=== PATIENT | female | born 1995 ===

== ENCOUNTER 2018-10-05 19:56 | Inpatient (IN) | payer OTHER ==
[~2018-10-05] VITALS: Ht 165.1 cm; Wt 100.2 kg
[~2018-10-05 19:56] MED LIST: Flagyl500 MG PO; PRENATAL GUMMI1 EACH PO
[2018-10-05 20:38] LABS: BASOPHILS ABSOLUTE AUTO 0.01 K/mm3 (0.00-0.23); BASOPHILS PERCENT AUTO 0 % (0-2); EOSINOPHILS ABSOLUTE AUTO 0.06 K/mm3 (0.00-0.68); EOSINOPHILS PERCENT AUTO 1 % (0-6); Hematocrit 29.9 % (33.0-51.0); Hemoglobin 9.8 g/dL (11.5-16.0); IMMATURE GRAN ABSOLUTE AUTO 0.04 K/mm3 (0.00-0.10); IMMATURE GRAN PERCENT AUTO 0 % (0-1); LYMPHOCYTES ABSOLUTE AUTO 1.02 K/mm3 (0.84-5.20); LYMPHOCYTES PERCENT AUTO 11 % (21-46); MONOCYTES ABSOLUTE AUTO 0.49 K/mm3 (0.16-1.47); MONOCYTES PERCENT AUTO 5 % (4-13); Mean Corpuscular HGB 26.6 pg (26.0-34.0); Mean Corpuscular HGB Conc 32.8 g/dL (31.5-36.5); Mean Corpuscular Volume 81 fL (80-100); Mean Platelet Volume 10.9 fL (9.1-12.4); NEUTROPHILS PERCENT AUTO 83 % (41-73); Platelet Count 304 K/mm3 (150-400); RDW Coefficient Variation 12.5 % (11.7-14.2); RDW Standard Deviation 36.9 fL (35.1-46.3); Red Blood Cell Count 3.69 M/mm3 (3.80-5.20); White Blood Cell Count 9.42 K/mm3 (4.00-11.30)
[2018-10-05 22:10] LABS: PCO2 Cord - Arterial 53.9 mmHg (40-50); PO2 Cord - Arterial 13.3 mmHg (16-20); pH Cord - Arterial 7.32 (7.28-7.35)
[2018-10-05 22:11] LABS: PCO2 Cord - Venous 43.1 mmHg (40-50); PO2 Cord - Venous 21.7 mmHg (28-32); pH Umbilical Cord - Venous 7.37 (7.26-7.35)
--- NOTE | 2018-10-06 00:55 | NUR ---
CAPSULE PROBLEMS PT IN PACU 10/05/18 FROM [id number]. PT WAS SHAKING, HAD TROUBLE GETTING INITIAL BP. DR. ROMO IN PACU AND WAITED FOR FIRST BP. CAPSULE DID NOT RECORD VITAL SIGNS TO SEND TO [employer]. VS WERE OBTAINED FROM PACU MONITOR AND ENTERED INDIVIDUALLY.
[2018-10-06 05:45] LABS: Hematocrit 23.9 % (33.0-51.0); Hemoglobin 7.7 g/dL (11.5-16.0); Mean Corpuscular HGB 26.3 pg (26.0-34.0); Mean Corpuscular HGB Conc 32.2 g/dL (31.5-36.5); Mean Corpuscular Volume 82 fL (80-100); Mean Platelet Volume 10.6 fL (9.1-12.4); Platelet Count 223 K/mm3 (150-400); RDW Coefficient Variation 12.5 % (11.7-14.2); RDW Standard Deviation 37.6 fL (35.1-46.3); Red Blood Cell Count 2.93 M/mm3 (3.80-5.20); White Blood Cell Count 7.36 K/mm3 (4.00-11.30)
--- NOTE | 2018-10-06 14:50 | NUR ---
pt has maguire catheter in place, patent and draining clear maximiliano urine. she is c/o burning and feeling like she is voiding around the catheter. upon assessment, pt is dry around catheter and it is still draining. she is currently on abx and vitals are stabilizing, currently receiving one unit prbc for hgb less than 8. she is about 15 hours post op, but she feels that she is not quite ready to have us take maguire out and ambulate to the bathroom. i consulted with luz elena pisano rn, and she agrees with my assessment and plan. we will reassess option to take out catheter after blood transfusion is complete.
--- NOTE | 2018-10-06 17:00 | NUR ---
CONSULT. BABY IS LESS THAN 12 HOURS OLD AND SLEEPY. HE HAS FED A COUPLE OF TIMES FAIRLY WELL, MOM HAVING PROBLEMS WITH LATCHING ON RIGHT SIDE WITH LARGER NIPPLE AND DEEP CREVASSE IN THE CENTER OF THE NIPPLE. ABLE TO SELF EBM WELL. EXPERIENCED WITH BF AND HANDLES BABY WELL. LOW H&H AND IS RECEIVING BLOOD TRANSFUSION. HISTORY OF GOOD PRODUCTION. INSTRUCT IN CHANGES TO EXPECT DURING THE FIRST WEEK WITH FEEDINGS AND WITH BABY AND REFERRED TO BF BROCHURE. ATTEMPTED LATCH IN FOOTBALL POSITION, HE WAS TOO SLEEPY AND NO EFFORT GIVEN. MOM IS LOVING. QUESTIONS ANSWERED.
--- NOTE | 2018-10-06 23:06 | NUR ---
PT DOING WELL OTHER THAN REPORT OF 7/10 PAIN. AROUND 1930 PT WAS GIVEN 2 TABLETS OF PERCOCET AND 1 TAB OF ROXYCODONE ONE HOUR LATER. AT 2299 PT WAS GIVEN TORODOL ORDERED. PT STILL REPORTS 7/10 PAIN. WILL CONTINUE TO MONITOR REPOSITION/ USE HEAT PACK. PT UP TO AMBULATE TO THE BATHROOM. PT WAS OFFERED THE OPTION OF SHOWERING WHEN SHE GOT UP BUT REPORTED SHE WOULD LIKE TO "WAIT A FEW MORE HOURS UNTIL SHE WAS READY" [facility]. FIRST PP VOID WITHOUT DIFFICULTY. PT ENCOURAGED TO REST. VITALS WNL.
--- NOTE | 2018-10-07 02:00 | NUR ---
MOTHER UPDATED ON HOSPITAL POLICY THAT INFANT NEEDS TO BE IN THE CRIB WHILE SLEEPING.
[2018-10-07 05:03] LABS: Hematocrit 26.1 % (33.0-51.0); Hemoglobin 8.5 g/dL (11.5-16.0); Mean Corpuscular HGB 26.6 pg (26.0-34.0); Mean Corpuscular HGB Conc 32.6 g/dL (31.5-36.5); Mean Corpuscular Volume 82 fL (80-100); Mean Platelet Volume 10.3 fL (9.1-12.4); Platelet Count 231 K/mm3 (150-400); RDW Coefficient Variation 12.7 % (11.7-14.2); RDW Standard Deviation 38.1 fL (35.1-46.3); Red Blood Cell Count 3.19 M/mm3 (3.80-5.20); White Blood Cell Count 9.01 K/mm3 (4.00-11.30)
--- NOTE | 2018-10-07 08:14 | NUR ---
EDITED, RN PUSHED Y INSTEAD OF N. PT DOES NOT HAVE COPING ISSUES, IS NOT IN AN UNSAFE ENVIORNMENT AND IS NOT A THREAT TO HERSELF.
--- NOTE | 2018-10-07 09:38 | NUR ---
PT REPORTS FEELING LIGHT HEADED, IS NOT SEEING SPOTS, NO RINGING IN THE EARS. JUICE GIVEN. BOX 100%, PULSE WNL FOR PT. PT STATES SHE HASN'T SLEPT AND DIDN'T EAT BREAKFAST. SANDWHICH GIVEN.
--- NOTE | 2018-10-07 10:19 | NUR ---
PT FEELING LESS ANXIOUS. STATES SHE WILL TRY AND SLEEP WHEN HER BOYFRIEND COMES.
--- NOTE | 2018-10-07 11:25 | NUR ---
PT HYSTERICAL, CRYING WITH BOYFRIEND AT SIDE. STATES SHE HURTS AND IS TIRED. WOULD LIKE SHERLEY.
--- NOTE | 2018-10-07 11:35 | NUR ---
RONALD TINSLEY CNM IN HOUSE AND UPDATED ON PT STATUS. ALVINA TO ROOM, PT CALM AND NOT CRYING. STATES SHE IS NOT USUALLY ANXIOUS AND IS UNSURE WHY. ENCOURAGED REST AND SLEEP. INCISION CHECKED BY ARLYN TINSLEY.
--- NOTE | 2018-10-07 12:18 | NUR ---
PT IN BED HOLDING INFAN TO BREASTFEED. IS NOT TEARFUL. APPEARS HAPPY AND CALM, IS TRYING TO EAT HER SOUP.
--- NOTE | 2018-10-07 13:30 | NUR ---
PT SMILING AND TALKING WITH FRIEND, EATING FOOD THAT WAS BROUGHT TO HER. DECLINES PERCOCET, STATES SHE FEELS GOOD. WILL CALL WHEN READY.
--- NOTE | 2018-10-07 21:00 | NUR ---
PT DENIES FEELING ANXIOUS AT THIS TIME. REPORTS SHE FEELS BETTER THAN THE PREVIOUS DAY AFTER RESTING AND EATING. REPORTS PAIN INTERMITTENTLY THAT VARIES FROM 5-7/10. KYLIE AND PERCOCET GIVEN PRN ORDERED. ENCOURAGED TO REST. WILL MONITOR
--- NOTE | 2018-10-08 07:45 | NUR ---
PATEINT COMPLAINS OF PAIN 7/10WHILE FALLING ASLEEP DURING CONVERSATION. PT REFUSES FOR NURSE TO MEASURE VITAL SIGNS ON BABY AND ASSESSMENT AT THIS TIME
[2018-10-08] MEDS ORDERED: Percocet 5-3251 EACH PO (13:25)
[2018-10-08] MEDS ORDERED: IBUP800 PO (13:26)
--- NOTE | 2018-10-08 17:40 | NUR ---
PT DISCHARGED HOME. PT LEFT ROOM VIA WHEELCHAIR AND COPYWRITER ESCORT JUST PRIOR TO THIS NOTE. DISCHARGE TEACHING COMPLETED, PT VERBALIZED UNDERSTANDING. NURSE EDUCATED PT ABOUT THE TOPICS INCLUDED IN INFORMATIONAL BOOKLET AND HOW TO DOWNLOAD FRACISCO. ALL QUESTIONS ANSWERED.
== END 2018-10-08 17:36 | disposition home or self-care (01) | DRG 788 ==
LOC: OBS 19:56 → BC 20:15
PROVIDERS: Nurse Practitioner Obstetrics & Gynecology; ADMIT Obstetrics & Gynecology
PROC: 10D00Z1 Extraction of Products of Conception, Low, Open Approach (ICD-10-PCS; principal; 2018-10-05 20:30)
PROC: 30233N1 Transfusion of Nonautologous Red Blood Cells into Peripheral Vein, Percutaneous Approach (ICD-10-PCS; 2018-10-06)
DX: O60.14X0 Preterm labor third trimester with preterm delivery third trimester, not applicable or unspecified (principal); O34.211 Maternal care for low transverse scar from previous cesarean delivery; Z3A.36 36 weeks gestation of pregnancy; Z37.0 Single live birth; O90.81 Anemia of the puerperium; D64.9 Anemia, unspecified
CPT/HCPCS: 36415; 36430; 59025; 81001; 82803; 85025; 85027; 86850; 86900; 86901; 86923; 96361; 96372; 96374; 99213; J0690; J1170; J1885; J2270; J2370; J2405; J2550; J2590; J2765; J3010; J7030; J7120; J7131; P9016

== ENCOUNTER 2018-11-01 16:00 | Inpatient (IN) | payer OTHER ==
[~2018-11-01] VITALS: Ht 165.1 cm; Wt 93.8 kg
[~2018-11-01 16:00] MED LIST changes: +IBUP800 PO; +Percocet 5-3251 EACH PO
[2018-11-01 17:28] LABS: BASOPHILS ABSOLUTE AUTO 0.03 K/mm3 (0.00-0.23); BASOPHILS PERCENT AUTO 0 % (0-2); EOSINOPHILS ABSOLUTE AUTO 0.04 K/mm3 (0.00-0.68); EOSINOPHILS PERCENT AUTO 0 % (0-6); Hematocrit 35.3 % (33.0-51.0); IMMATURE GRAN PERCENT AUTO 1 % (0-1); LYMPHOCYTES ABSOLUTE AUTO 1.26 K/mm3 (0.84-5.20); LYMPHOCYTES PERCENT AUTO 8 % (21-46); MONOCYTES PERCENT AUTO 5 % (4-13); Mean Corpuscular HGB 25.3 pg (26.0-34.0); Mean Corpuscular HGB Conc 31.2 g/dL (31.5-36.5); Mean Corpuscular Volume 81 fL (80-100); NEUTROPHILS ABSOLUTE AUTO 14.23 K/mm3 (1.96-9.15); NEUTROPHILS PERCENT AUTO 86 % (41-73); Platelet Count 269 K/mm3 (150-400); RDW Coefficient Variation 13.6 % (11.7-14.2); RDW Standard Deviation 40.4 fL (35.1-46.3); Red Blood Cell Count 4.35 M/mm3 (3.80-5.20); White Blood Cell Count 16.56 K/mm3 (4.00-11.30)
[2018-11-01 17:47] LABS: Alanine Aminotransfer (ALT/SGP 19 U/L (12-78); Albumin, Blood 3.4 g/dL (3.4-5.0); Albumin/Globulin Ratio 0.7 (0.8-1.8); Alk Phos 82 U/L (50-136); Anion Gap 9 mmol/L (6-16); Aspartate Aminotrans (AST/SGOT 14 U/L (12-37); Bilirubin, Total 0.5 mg/dL (0.1-1.0); Blood Urea Nitrogen 14 mg/dL (8-24); Bun/Creatinine Ratio 22.3 (12.0-20.0); CO2, Blood 24 mmol/L (21-32); Calcium, Blood 8.6 mg/dL (8.5-10.1); Chloride, Blood 102 mmol/L (98-108); Creatinine, Blood 0.63 mg/dL (0.40-1.00); Globulin, Blood 4.6 g/dL (2.2-4.0); Glomerular Filtration Rate >60 (60-); Glucose, Blood 109 mg/dL (70-99); Potassium, Blood 3.7 mmol/L (3.5-5.5); Sodium, Blood 135 mmol/L (136-145)
[2018-11-01 17:54] LABS: Influenza A Negative (NEGATIVE); Influenza B Negative (NEGATIVE)
[2018-11-01 18:38] LABS: Source, Urine Clean Catch
[2018-11-01 18:45] LABS: Appearance, Urine Hazy (Clear); Bilirubin, Urine Neg (Neg); Blood, Urine 3+ (Neg); Color, Urine Yellow (P-Yellow); Glucose Qualitative, Urine Neg (Neg); Ketones, Urine Neg (Neg); Leukocyte Esterase, Urine 1+ (Neg); Nitrite, Urine Neg (Neg); Protein, Urine 2+ (Neg); Specific Gravity, Urine 1.015 (1.003-1.022); Urobilinogen, Urine 1+ (Normal)
[2018-11-01 18:56] LABS: Bacteria Few /hpf; Hyaline Casts 0-2 /lpf (0-2); Mucus Mod ({null, 0-Heavy}); Red Blood Cells, Urine 0-2 /hpf (0-2); Squamous Epithelial Cells Few /hpf (Few)
--- NOTE | 2018-11-02 03:55 | NUR ---
SHIFT SUMMARY: PT IS ALERT AND ORIENTED. PT IS CALM AND COOPERATIVE WITH CARE. PT CALLS APPROPRIATELY. PT IS INDEPENDENT IN THE ROOM. BABY AND BOYFRIEND IN THE ROOM OVERNIGHT. PT REQUESTED SNACKS, GIVEN. PT DENIES PAIN, NAUSEA, VOMITING, AND SOB. PT SLEPT MUCH OF THE NIGHT WHEN NOT DISTURBED. NO ACUTE CHANGES OR COMPLICATIONS THIS SHIFT. BED IN LOW POSITION, CALL LIGHT WITHIN REACH. WILL REPORT TO DAY NURSE.
[2018-11-02 05:42] LABS: Hematocrit 30.3 % (33.0-51.0); Hemoglobin 9.4 g/dL (11.5-16.0); Mean Corpuscular HGB 24.9 pg (26.0-34.0); Mean Corpuscular Volume 80 fL (80-100); Mean Platelet Volume 10.6 fL (9.1-12.4); Platelet Count 212 K/mm3 (150-400); RDW Coefficient Variation 13.9 % (11.7-14.2); RDW Standard Deviation 40.7 fL (35.1-46.3); Red Blood Cell Count 3.77 M/mm3 (3.80-5.20); White Blood Cell Count 10.03 K/mm3 (4.00-11.30)
[2018-11-02 06:06] LABS: Alanine Aminotransfer (ALT/SGP 15 U/L (12-78); Albumin, Blood 2.6 g/dL (3.4-5.0); Albumin/Globulin Ratio 0.7 (0.8-1.8); Alk Phos 66 U/L (50-136); Anion Gap 9 mmol/L (6-16); Aspartate Aminotrans (AST/SGOT 17 U/L (12-37); Bilirubin, Total 0.3 mg/dL (0.1-1.0); Blood Urea Nitrogen 17 mg/dL (8-24); CO2, Blood 23 mmol/L (21-32); Chloride, Blood 108 mmol/L (98-108); Creatinine, Blood 0.61 mg/dL (0.40-1.00); Globulin, Blood 3.8 g/dL (2.2-4.0); Glomerular Filtration Rate >60 (60-); Glucose, Blood 137 mg/dL (70-99); Potassium, Blood 3.4 mmol/L (3.5-5.5); Sodium, Blood 140 mmol/L (136-145); Total Protein, Blood 6.4 g/dL (6.4-8.2)
--- NOTE | 2018-11-02 13:30 | NUR ---
DISCUSS PAIN MEDS WITH . OK TO ORDER IBU 600MG Q 8 PRN. IF PATIENT USES PERCOCET SHOULD PUMP BREAST FOR ABOUT 6 HOURS AND TOSS MILK. IF USES FENTANYL PROBABLY SHORTER TIME BEFORE BABY CAN USE BREAST MILK. PATIENT HAS PAIN " BASE OF HEAD BY NECK" , NOT WORSE PAIN, CAN MOVE HEAD. NO FURTHER ORDERS.
--- NOTE | 2018-11-02 13:30 | NUR ---
DISCUSS WITH PATIENT ABOUT NOT USING BREAST MILK FOR BABY IF TAKING NARCOTICS. PATIENT STS SHE HAS SOME MILK AT HOME SHE CAN USE. REITERATE TO PATIENT TO TOSS MILK AWAY FOR ABOUT 6 HOURS AFTER RECEIVING PERCOCET AND ABOUT 1/2 THAT TIME AFTER RECEIVING FENTANYL. PATIENT VERBALIZES UNDERSTANDING.
--- NOTE | 2018-11-02 18:21 | NUR ---
ALERT AND ORIENTED. HAS BEEN MEDICATED NUMEROUS TIMES FOR BACK PAIN AND NECK PAIN. HAS BEEN COUNSELLED ABOUT NARCOTICS AND FEEDING BABY BREAST MILK. IV PATENT. UNLABORED RESPIRATIONS. ABLE TO MAKE NEEDS KNOWN. BED IN LOW POSITION. INDEPENDENT IN ROOM. WILL CONTINUE TO MONITOR.
--- NOTE | 2018-11-03 01:13 | NUR ---
ASSUMED CARE OF PATIENT AT APPROXIMATELY 1900 FROM [facility] Will RN. PATIENT ALERT AND ORIENTED; INDEPENDENT IN ROOM. PATIENT REPORTS PAIN IN NECK AND BACK; REPORTS PAIN HAS BEEN OCCURING SINCE OF 3 WEEK OLD. PATIENT DENIES NUMBNESS, TINGLING, DIZZINESS OR NAUSEA. ICE AND WARM BLANKETS OFFERED FOR PAIN; PATIENT REPORTS ICE HELPS. IV PAIN MEDICATION NOT USED DUE TO PATIENT . PATIENT HESTITATE TO TAKE MEDS WHILE ; CONFIRMED WITH PHARMACIST ON TAKING MEDS WITH . PATIENT SIGNIFICANT OTHER AND 4 YEAR OLD SON SLEEPING IN ROOM. NSR ON TELE; OXYGEN SADTURATION ABOVE 90% ON ROOM AIR; HEALTHY APPETITE. REPORTS DIFFICULTY WITH BOWEL MOVEMENT DURING DAY; PRUNE JUICE AND APPLESAUCE GIVEN; WILL PASS ONTO DAYSHIFT FOR STOOL SOFTENER; REFUSE LAXATIVES. PATIENT CURRENTLY RESTING IN BED WITH INFANT; CALL LIGHT IN REACH; BED IN LOWEST POSISTION; WILL CONTINUE TO MONITOR AND ASSESS UNTIL END OF SHIFT.
--- NOTE | 2018-11-03 06:18 | NUR ---
NO ACUTE CHANGES TO REPORT. PATIENT SLEPT ABOUT SIX HOURS. REPORTS SHE WOKE UP AND FELT LIKE SHE WET THE BED; AFEBRILE; GOWN CHANGED. MEDICATED PER EMAR FOR PAIN. WILL CONTINUE TO MONITOR AND ASSESS UNTIL END OF SHIFT.
--- NOTE | 2018-11-03 11:46 | NUR ---
Student nurse was given permission to access charts and give patient care.
[2018-11-03] MEDS ORDERED: ACIDOPHILUS1 EAC1 PO (17:44)
[2018-11-03] MEDS ORDERED: CEFP200 PO (17:46)
--- NOTE | 2018-11-03 18:15 | NUR ---
REVIEW D'C W/PATIENT. AWARE TO ESCALATOR ATTENDANT RX X 2 AT [facility] [employer]. REVIEW WHAT MEDS SHE IS TAKING. AWARE TO MAKE FOLLOW UP APPT W/A PCP. STS SHE THINKS SHE HAS ONE AND SHE HAS THE PERSONS CARD. ADVISED IF SHE IS HAVING ANY PROBLEMS SHE CAN RETURN TO [facility]. PATIENT AWARE IF SHE TAKES NARCOTICS THEY CAN PASS THRU HER BREAST MILK. ANSWER ALL QUESTIONS. IN W/C W/DEBT RECOVERY OFFICER AND FAMILY MEMBERS TO CAR.
== END 2018-11-03 18:32 | disposition home or self-care (01) | DRG 776 ==
LOC: ER 16:00 → MEDS 20:27 → ER 21:26 → MEDS 21:32
PROVIDERS: Physician Assistant; ADMIT Internal Medicine
DX: O99.89 Other specified diseases and conditions complicating pregnancy, childbirth and the puerperium (principal); M54.9 Dorsalgia, unspecified; Q05.7 Lumbar spina bifida without hydrocephalus; O90.81 Anemia of the puerperium; O86.4 Pyrexia of unknown origin following delivery; B96.20 Unspecified Escherichia coli [E. coli] as the cause of diseases classified elsewhere; O86.20 Urinary tract infection following delivery, unspecified
CPT/HCPCS: 36415; 72148; 74177; 76856; 80053; 81001; 83605; 84132; 85025; 85027; 87040; 87077; 87086; 87186; 87804; 90686; 96361; 96365; 96375; 99285-25; J0696; J1170; J1885; J2405; J3010; J7030; J7120; P9612; Q9967

== ENCOUNTER 2019-06-26 18:40 | Emergency (ER) | payer OTHER ==
[~2019-06-26] VITALS: Ht 162.6 cm; Wt 86.2 kg
[~2019-06-26 18:40] MED LIST changes: +ACIDOPHILUS1 EAC1 PO; +CEFP200 PO; +CEPH500 PO; +ONDA4ODT MM
[2019-06-26 19:14] LABS: BASOPHILS ABSOLUTE AUTO 0.02 K/mm3 (0.00-0.23); BASOPHILS PERCENT AUTO 0 % (0-2); EOSINOPHILS ABSOLUTE AUTO 0.02 K/mm3 (0.00-0.68); EOSINOPHILS PERCENT AUTO 0 % (0-6); IMMATURE GRAN ABSOLUTE AUTO 0.02 K/mm3 (0.00-0.10); IMMATURE GRAN PERCENT AUTO 0 % (0-1); LYMPHOCYTES ABSOLUTE AUTO 1.36 K/mm3 (0.84-5.20); LYMPHOCYTES PERCENT AUTO 18 % (21-46); MONOCYTES ABSOLUTE AUTO 0.58 K/mm3 (0.16-1.47); MONOCYTES PERCENT AUTO 8 % (4-13); Mean Corpuscular HGB 26.7 pg (26.0-34.0); Mean Corpuscular HGB Conc 32.5 g/dL (31.5-36.5); Mean Corpuscular Volume 82 fL (80-100); Mean Platelet Volume 9.6 fL (9.1-12.4); NEUTROPHILS ABSOLUTE AUTO 5.64 K/mm3 (1.96-9.15); NEUTROPHILS PERCENT AUTO 74 % (41-73); Platelet Count 302 K/mm3 (150-400); RDW Coefficient Variation 14.5 % (11.7-14.2); RDW Standard Deviation 43.4 fL (35.1-46.3); Red Blood Cell Count 4.87 M/mm3 (3.80-5.20); White Blood Cell Count 7.64 K/mm3 (4.00-11.30)
[2019-06-26 19:33] LABS: Alanine Aminotransfer (ALT/SGP 15 U/L (12-78); Albumin, Blood 3.8 g/dL (3.4-5.0); Albumin/Globulin Ratio 0.8 (0.8-1.8); Alk Phos 83 U/L (50-136); Anion Gap 6 mmol/L (6-16); Aspartate Aminotrans (AST/SGOT 13 U/L (12-37); Bilirubin, Total 0.4 mg/dL (0.1-1.0); Blood Urea Nitrogen 10 mg/dL (8-24); Bun/Creatinine Ratio 22.5 (12.0-20.0); CO2, Blood 26 mmol/L (21-32); Calcium, Blood 9.2 mg/dL (8.5-10.1); Chloride, Blood 107 mmol/L (98-108); Creatinine, Blood 0.45 mg/dL (0.40-1.00); Globulin, Blood 4.5 g/dL (2.2-4.0); Glomerular Filtration Rate >60 (60-); Glucose, Blood 102 mg/dL (70-99); Potassium, Blood 3.3 mmol/L (3.5-5.5); Sodium, Blood 139 mmol/L (136-145); Total Protein, Blood 8.3 g/dL (6.4-8.2)
[2019-06-26 20:18] LABS: Source, Urine Clean Catch
[2019-06-26 20:20] LABS: Blood, Urine 5+ (Neg); Glucose Qualitative, Urine Neg (Neg); Ketones, Urine 3+ (Neg); Leukocyte Esterase, Urine 2+ (Neg); Nitrite, Urine Neg (Neg); Protein, Urine 2+ (Neg); Specific Gravity, Urine 1.015 (1.003-1.022); Urobilinogen, Urine 3+ (Normal)
[2019-06-26 20:26] LABS: Appearance, Urine Hazy (Clear); Bilirubin, Urine 1+ (Neg); Color, Urine Yellow (P-Yellow)
[2019-06-26 20:27] LABS: Bacteria Many /hpf; Mucus Mod (0-Heavy); Squamous Epithelial Cells Mod /hpf (Few)
[2019-06-26 21:01] LABS: CPK Creatine Kinase 36 U/L (26-193)
[2019-06-26 21:04] LABS: Thyroid Stimulating Hormone 0.789 uIU/mL (0.360-4.800)
[2019-06-26] MEDS ORDERED: ONDA4ODT MM (23:33)
[2019-06-29 13:07] LABS: QUANTIFERON MITOGEN VALUE >10.00 IU/mL (.); QUANTIFERON NIL VALUE 0.24 IU/mL (.); QUANTIFERON TB1 AG VALUE 0.23 IU/mL (.); QUANTIFERON TB2 AG VALUE 0.22 IU/mL (.); QUANTIFERON-TB GOLD PLUS Negative (Negative)
[2019-06-29 14:07] LABS: ANA DIRECT Negative (Negative); ANTIMYELOPEROXIDASE (MPO) ABS <9.0 U/mL (0.0-9.0); ANTIPROTEINASE 3 (PR-3) ABS <3.5 U/mL (0.0-3.5); ATYPICAL PANCA <1:20 titer (Neg:<1:20); CYTOPLASMIC (C-ANCA) <1:20 titer (Neg:<1:20); PERINUCLEAR (P-ANCA) <1:20 titer (Neg:<1:20)
== END 2019-06-26 23:46 | disposition home or self-care (01) ==
LOC: ER 18:40
PROVIDERS: Emergency Medicine
DX: R51 Headache (principal); R11.2 Nausea with vomiting, unspecified; R50.9 Fever, unspecified
CPT/HCPCS: 36415; 71046; 74177; 80053; 81001; 81025; 82550; 83520; 84443; 85025; 86141; 86256; 86430; 86480; 87081; 87086; 87430; 96361; 96374-59; 96375; 99284-25; J1200; J1885; J2405; J2765; J7030; Q9967

== ENCOUNTER 2021-05-04 19:11 | Emergency (ER) | payer OTHER ==
[~2021-05-04] VITALS: Ht 165.1 cm; Wt 94.8 kg
[2021-05-04 22:28] LABS: SARS-Cov-2 (COVID-19) PCR, MMC NEGATIVE (NEGATIVE)
[2021-05-04 23:04] LABS: BASOPHILS ABSOLUTE AUTO 0.01 K/mm3 (0.00-0.23); BASOPHILS PERCENT AUTO 0 % (0-2); EOSINOPHILS PERCENT AUTO 0 % (0-6); Hematocrit 32.9 % (33.0-51.0); Hemoglobin 10.6 g/dL (11.5-16.0); IMMATURE GRAN PERCENT AUTO 0 % (0-1); LYMPHOCYTES ABSOLUTE AUTO 1.05 K/mm3 (0.84-5.20); LYMPHOCYTES PERCENT AUTO 22 % (21-46); MONOCYTES ABSOLUTE AUTO 0.28 K/mm3 (0.16-1.47); MONOCYTES PERCENT AUTO 6 % (4-13); Mean Corpuscular HGB 24.9 pg (26.0-34.0); Mean Corpuscular HGB Conc 32.2 g/dL (31.5-36.5); Mean Corpuscular Volume 77 fL (80-100); Mean Platelet Volume 10.3 fL (9.1-12.4); NEUTROPHILS ABSOLUTE AUTO 3.46 K/mm3 (1.96-9.15); NEUTROPHILS PERCENT AUTO 72 % (41-73); Platelet Count 235 K/mm3 (150-400); RDW Coefficient Variation 14.4 % (11.7-14.2); RDW Standard Deviation 40.3 fL (35.1-46.3); Red Blood Cell Count 4.25 M/mm3 (3.80-5.20)
[2021-05-04 23:24] LABS: Alanine Aminotransfer (ALT/SGP 18 U/L (12-78); Albumin, Blood 3.1 g/dL (3.4-5.0); Albumin/Globulin Ratio 0.9 (0.8-1.8); Alk Phos 59 U/L (50-136); Anion Gap 7 mmol/L (6-16); Aspartate Aminotrans (AST/SGOT 11 U/L (12-37); Bilirubin, Total 0.2 mg/dL (0.1-1.0); Blood Urea Nitrogen 11 mg/dL (8-24); Bun/Creatinine Ratio 19.3 (12.0-20.0); CO2, Blood 23 mmol/L (21-32); Calcium, Blood 7.6 mg/dL (8.5-10.1); Chloride, Blood 109 mmol/L (98-108); Creatinine, Blood 0.57 mg/dL (0.40-1.00); Globulin, Blood 3.6 g/dL (2.2-4.0); Glomerular Filtration Rate >60 (60-); Glucose, Blood 126 mg/dL (70-99); Potassium, Blood 3.4 mmol/L (3.5-5.5); Sodium, Blood 139 mmol/L (136-145); Total Protein, Blood 6.7 g/dL (6.4-8.2); Troponin I <0.015 ng/mL (0.000-0.040)
[2021-05-04 23:27] LABS: Source, Urine Clean Catch
[2021-05-04 23:30] LABS: Bilirubin, Urine Neg (Neg); Blood, Urine 2+ (Neg); Glucose Qualitative, Urine Neg (Neg); Ketones, Urine 3+ (Neg); Leukocyte Esterase, Urine 2+ (Neg); Nitrite, Urine Neg (Neg); Protein, Urine 2+ (Neg); Urobilinogen, Urine NORM (Normal)
[2021-05-04 23:36] LABS: Appearance, Urine Hazy (Clear); Color, Urine Yellow (P-Yellow)
[2021-05-04 23:37] LABS: Amorphous Light (0-Heavy); Bacteria Mod /hpf; Mucus Heavy (0-Heavy); Red Blood Cells, Urine 0-2 /hpf (0-2); Squamous Epithelial Cells Mod /hpf (Few)
[2021-05-04] MEDS ORDERED: NITR100CA PO (23:53)
[2021-05-04] MEDS ORDERED: CYCL10 PO (23:55)
[2021-05-06] MEDS ORDERED: AZIT250 PO (19:08)
[2021-05-06] MEDS ORDERED: CEFD300 PO (19:08)
== END 2021-05-05 00:24 | disposition home or self-care (01) ==
LOC: ER 19:11
PROVIDERS: Physician Assistant
DX: N39.0 Urinary tract infection, site not specified (principal); R07.9 Chest pain, unspecified; R05 Cough; Z20.822 Contact with and (suspected) exposure to COVID-19
CPT/HCPCS: 71045; 80053; 81001; 81025; 84484; 85025; 85379; 87086; 93005; 93010; 96374; 99284-25; A9270; J1885; J7030; U0004

== ENCOUNTER 2021-05-06 11:01 | Emergency (ER) | payer OTHER ==
[~2021-05-06] VITALS: Ht 165.1 cm; Wt 94.8 kg
[~2021-05-06 11:01] MED LIST changes: +CYCL10 PO; +NITR100CA PO
[2021-05-06 13:03] LABS: BASOPHILS ABSOLUTE AUTO 0.01 K/mm3 (0.00-0.23); BASOPHILS PERCENT AUTO 0 % (0-2); EOSINOPHILS ABSOLUTE AUTO 0.01 K/mm3 (0.00-0.68); EOSINOPHILS PERCENT AUTO 0 % (0-6); Hematocrit 37.7 % (33.0-51.0); IMMATURE GRAN ABSOLUTE AUTO 0.01 K/mm3 (0.00-0.10); IMMATURE GRAN PERCENT AUTO 0 % (0-1); LYMPHOCYTES PERCENT AUTO 28 % (21-46); MONOCYTES ABSOLUTE AUTO 0.36 K/mm3 (0.16-1.47); MONOCYTES PERCENT AUTO 7 % (4-13); Mean Corpuscular HGB 24.5 pg (26.0-34.0); Mean Corpuscular HGB Conc 31.8 g/dL (31.5-36.5); Mean Corpuscular Volume 77 fL (80-100); NEUTROPHILS ABSOLUTE AUTO 3.15 K/mm3 (1.96-9.15); NEUTROPHILS PERCENT AUTO 64 % (41-73); Platelet Count 248 K/mm3 (150-400); RDW Coefficient Variation 14.5 % (11.7-14.2); RDW Standard Deviation 40.7 fL (35.1-46.3); White Blood Cell Count 4.94 K/mm3 (4.00-11.30)
[2021-05-06 13:33] LABS: Alanine Aminotransfer (ALT/SGP 20 U/L (12-78); Albumin, Blood 3.3 g/dL (3.4-5.0); Albumin/Globulin Ratio 0.8 (0.8-1.8); Alk Phos 64 U/L (50-136); Anion Gap 6 mmol/L (6-16); Aspartate Aminotrans (AST/SGOT 15 U/L (12-37); Bilirubin, Total 0.2 mg/dL (0.1-1.0); Blood Urea Nitrogen 10 mg/dL (8-24); Bun/Creatinine Ratio 17.9 (12.0-20.0); CO2, Blood 24 mmol/L (21-32); Calcium, Blood 8.7 mg/dL (8.5-10.1); Chloride, Blood 108 mmol/L (98-108); Creatinine, Blood 0.56 mg/dL (0.40-1.00); Globulin, Blood 4.4 g/dL (2.2-4.0); Glomerular Filtration Rate >60 (60-); Glucose, Blood 105 mg/dL (70-99); Potassium, Blood 3.6 mmol/L (3.5-5.5); Sodium, Blood 138 mmol/L (136-145); Total Protein, Blood 7.7 g/dL (6.4-8.2)
[2021-05-06 14:55] LABS: Source, Urine Clean Catch
[2021-05-06 15:09] LABS: Appearance, Urine Hazy (Clear); Bilirubin, Urine Neg (Neg); Blood, Urine 2+ (Neg); Color, Urine Yellow (P-Yellow); Glucose Qualitative, Urine Neg (Neg); Ketones, Urine Neg (Neg); Leukocyte Esterase, Urine 3+ (Neg); Nitrite, Urine Neg (Neg); Protein, Urine 2+ (Neg); Urobilinogen, Urine NORM (Normal)
[2021-05-06 17:07] LABS: Bacteria Mod /hpf; Red Blood Cells, Urine 0-2 /hpf (0-2); Squamous Epithelial Cells Few /hpf (Few)
[2021-05-06 18:17] LABS: SARS-Cov-2 (COVID-19) PCR, MMC NEGATIVE (NEGATIVE)
[2021-05-06] MEDS ORDERED: CEFD300 PO (19:08)
[2021-05-06] MEDS ORDERED: AZIT250 PO (19:08)
== END 2021-05-06 19:48 | disposition home or self-care (01) ==
LOC: ER 11:01
PROVIDERS: Physician Assistant
DX: J18.9 Pneumonia, unspecified organism (principal); Z20.822 Contact with and (suspected) exposure to COVID-19
CPT/HCPCS: 36415; 71046; 80053; 81001; 81025; 83690; 85025; 87086; 99284-25; A9270; J7030; U0004